=== PATIENT | male | born 1960 | race Caucasian/White ===

== ENCOUNTER 2021-01-24 11:44 | Emergency (ER) | payer BC, OTHER ==
[~2021-01-24] VITALS: Ht 170.2 cm; Wt 71.7 kg
[2021-01-24 12:21] LABS: ABSOLUTE NEUTROPHILS 5.6 thou/uL (1.4-8.2); BASOPHILS 1.4 % (0.0-2.0); EOSINOPHILS 3.3 % (0.0-3.0); HEMATOCRIT 33.6 % (42.0-52.0); HEMOGLOBIN 11.4 gm/dL (14.0-18.0); MCH 30.4 pg (26.0-34.0); MCHC 33.8 g/dL (28.0-37.0); MCV 89.9 fL (80.0-100.0); MONOCYTES 7.5 % (1.0-8.0); PLATELET COUNT 346 thou/uL (150-400); POLYS 66.8 % (36.0-66.0); RBC 3.74 mil/uL (4.50-6.00); RDW 14.3 % (10.5-14.5); WBC 8.3 thou/uL (4.0-11.0)
[2021-01-24 12:24] LABS: URINE BILIRUBIN NEGATIVE (Negative); URINE BLOOD NEGATIVE (Negative); URINE COLOR YELLOW; URINE GLUCOSE-RANDOM* NEGATIVE (Negative); URINE KETONES NEGATIVE (Negative); URINE LEUKOCYTES-REFLEX NEGATIVE (Negative); URINE NITRITE-REFLEX NEGATIVE (Negative); URINE PROTEIN (DIPSTICK) NEGATIVE (Negative)
[2021-01-24 12:27] LABS: CALCIUM 8.1 mg/dL (8.5-10.1); CREATININE 0.9 mg/dL (0.7-1.3); POTASSIUM 3.7 mmol/L (3.5-5.1)
[2021-01-24 12:27] LABS: URINE CLARITY CLOUDY
[2021-01-24 12:34] LABS: ALBUMIN 3.5 g/dL (3.4-5.0); TOTAL BILIRUBIN 0.4 mg/dL (0.2-1.0); TOTAL PROTEIN 6.4 g/dL (6.4-8.2)
[2021-01-24 13:17] LABS: APTT 24.7 Seconds (24.5-32.8); INR 1.02; PROTIME 11.1 Seconds (10.5-12.1)
[2021-01-24 13:40] VITALS: BP 118/64
[2021-01-24] MEDS ORDERED: PROTONIX40 MG PO (13:40)
== END 2021-01-24 13:40 | disposition home or self-care (01) ==
LOC: ER 11:44
PROVIDERS: Emergency Medicine
DX: K92.2 Gastrointestinal hemorrhage, unspecified (principal)